=== PATIENT | male | born 1985 | race Caucasian/White ===

== ENCOUNTER 2016-04-25 22:10 | Emergency (ER) | payer SELFPAY ==
[~2016-04-25] VITALS: Ht 177.8 cm; Wt 81.0 kg
[2016-04-25] MEDS ORDERED: OLANZAPINE 10 MG/VIAL IM STA (23:32)
[2016-04-25] MEDS ORDERED: ONDANSETRON HCL 4MG/2ML VIAL IV STA (23:32)
[2016-04-25] MEDS ORDERED: LORAZEPAM 2MG/ML CPJ IV STA (23:32)
[2016-04-25] MEDS ORDERED: SODIUM CHLORIDE 0.9% 1,000 ML IV ONE (23:32)
[2016-04-25 23:40] VITALS: BP 138/68
[2016-04-26 00:21] LABS: BASOPHILS % 0.2 % (0.0-2.0); EOSINOPHILS % 0.2 % (0.0-5.0); HEMATOCRIT. 48.1 % (42.0-52.0); HEMOGLOBIN. 16.4 g/dL (14.0-18.0); LYMPHOCYTES % 47.1 % (20.0-50.0); MEAN CORPUSCULAR HEMOGLOBIN 31.3 pg (28.0-32.0); MEAN CORPUSCULAR HGB CONC 34.2 g/dL (31.0-37.0); MEAN CORPUSCULAR VOLUME 91.7 fL (80.0-94.0); MEAN PLATELET VOLUME 6.7 fl (7.4-10.4); NEUTROPHILS % 44.5 % (40.0-76.0); PLATELET 274 x1000/uL (130-400); RED BLOOD CELL COUNT 5.25 mill/uL (4.7-6.1); RED CELL DISTRIBUTION WIDTH 14.3 % (11.6-14.6); WHITE BLOOD COUNT 8.6 x1000/uL (4.5-11.0)
[2016-04-26 00:38] LABS: ALANINE AMINOTRANSFERASE 29 IU/L (13-61); ANION GAP 13; CALCIUM 7.9 mg/dL (8.5-10.1); CARBON DIOXIDE 26 mEq/L (21-32); CHLORIDE 110 mEq/L (98-107); UREA NITROGEN BLOOD 7 mg/dL (7-21); eGFR > 60 mL/min (>60)
[2016-04-26 00:39] LABS: LIPASE 130 IU/L (73-393); TROPONIN I < 0.02 ng/mL (0.00-0.04)
[2016-04-26 00:40] LABS: ACETAMINOPHEN < 2 ug/mL (10-30)
[2016-04-26 00:44] LABS: AMMONIA 23 uMol/L (<32)
[2016-04-26 00:51] LABS: THYROID STIMULATING HORMONE 0.32 mIU/mL (0.36-3.74)
[2016-04-26 00:52] LABS: ETHANOL BLOOD 387 mg/dL
[2016-04-26 01:14] LABS: INDEX HEMOLYSI 1 (1-3); INDEX ICTERIC 1 (1-4); INDEX LIPEMIC 1 (1-3)
== END 2016-04-25 23:55 | disposition left against medical advice (07) ==
LOC: ER 22:11
DX: F10.129 Alcohol abuse with intoxication, unspecified (principal); F15.10 Other stimulant abuse, uncomplicated; F17.210 Nicotine dependence, cigarettes, uncomplicated; Z88.0 Allergy status to penicillin; Y90.8 Blood alcohol level of 240 mg/100 ml or more
CPT/HCPCS: 36415; 80053; 80307; 80329; 82140; 83690; 84443; 84484; 85025; 85610; 93005; 99285; G0482; Z7610; J7030